=== PATIENT | male | born 1995 ===

== ENCOUNTER 2020-02-26 13:17 | Emergency (ER) | payer SELFPAY ==
--- NOTE | 2020-02-26 14:25 | Emergency Department Report ---
ED Laceration HPI - HPI Chief Complaint: Wound/Laceration Stated Complaint: FOOT CUT WITH SAW Time Seen by Provider: 02/26/20 14:20 Tetanus Status: Not up to Date Laceration Symptoms: Yes Pain, No Foreign Body Sensation, No Numbness, No Weakness Other History: This is a 24-year-old male presents the ED today pain and laceration to the right big toe using a saw. Patient states he saw accidentally cut his foot. Patient states he was at work when this incident happened. Patient states his tetanus is not up-to-date. He denies fever/chills/nausea or vomiting. Patient states he was able to stop the bleeding with some pressure. ED Review of Systems ROS: Stated complaint: FOOT CUT WITH SAW Other details as noted in HPI Comment: All other systems reviewed and negative ED Past Medical Hx - Past Medical History Previous Medical History?: No - Surgical History Past Surgical History?: No - Social History Smoking Status: Never Smoker Substance Use Type: Alcohol - Medications Home Medications: Home Medications Medication Instructions Recorded Confirmed Last Taken Type Ibuprofen [Motrin 800 MG tab] 800 mg PO Q8HR PRN #30 tablet 02/26/20 Unknown Rx cephALEXin [Keflex] 500 mg PO Q12HR #14 cap 02/26/20 Unknown Rx Laceration Physical Exam - Exam General: Vital signs noted. No distress. Alert and acting appropriately. Wound Length (cm): 4 Full Body Front + Back: 1 - 3-4 cm horizontal laceration to location. Laceration Exam: Yes Normal Distal CMS, No Foreign Body, No Exposed Tendon, Vessel, or Nerve, No Tendon Injury - Laceration /Wound Repair Right Foot Wound Location: lower extremity Wound Length (cm): 3 Wound's Depth, Shape: superficial, linear Wound Explored: clean Betadine Prep?: Yes Anesthesia: Lidocaine w/ Epi Volume Anesthetic (ccs): 4 Wound Repaired With: sutures Suture Size/Type: 3:0, proline Number of Sutures: 10 Layer Closure?: No Sterile Dressing Applied?: Yes ED Medical Decision Making - Medical Decision Making 24-year-old male presenting with RIGHT FOOT/toe laceration. Toe laceration was sutured, see procedure note. Patient received Boostrix in the ED Discussed with patient to follow-up with primary care physician or return here for removal within 10 days. Vital signs are normal patient is in no acute distress. The 3cm laceration wound was prepped and draped in sterile fashion. Anesthesia was achieved with 4mL of 1% lidocaine. The wound was irrigated with 200cc NS and explored. There were no foreign bodies The wound was reapproximated in 1 layer suing with 4-0 monofilament sutures in the dermis with 10 continuos sutures sutures percutaneously. There was excellent reapproximation of the wound edges. The patient tolerated the procedure without complication Critical care attestation.: If time is entered above; I have spent that time in minutes in the direct care of this critically ill patient, excluding procedure time. ED Disposition Clinical Impression: Laceration of foot excluding toes without complication Disposition: DC TO HOME OR SELFCARE Is pt being admited?: No Does the pt Need Aspirin: No Condition: Stable Instructions: Laceration (ED), Suture Care (ED), Suture Removal (ED) Additional Instructions: Make sure to follow up with the primary care physician as discussed. Take all your medications as you've been prescribed. If you have any worsening symptoms or develop new symptoms please return to ED immediately. Referrals: [facility] [Outside] - 3-5 Days [facility] [Outside] - 3-5 Days [facility] [Outside] - 3-5 Days Forms: Work/School Release Form(ED) Time of Disposition: 16:14 Print Language: GREEK
[2020-02-26] MEDS ORDERED: HYDROcodone/ACETAMINOPHEN 5-325 MG TAB PO ONE (14:27)
[2020-02-26] MEDS ORDERED: TETANUS,DIPH,PERTUSS(ACELL) VACCINE 0.5 ML SYRINGE IM ONE (15:18)
[2020-02-26 15:45] VITALS: BP 125/104
== END 2020-02-26 16:20 | disposition home or self-care (01) ==
LOC: ED 13:17
DX: S91.311A Laceration without foreign body, right foot, initial encounter (principal); W26.8XXA Contact with other sharp object(s), not elsewhere classified, initial encounter; Y93.89 Activity, other specified; Y92.89 Other specified places as the place of occurrence of the external cause; Y99.8 Other external cause status
CPT/HCPCS: 90471; 90715